=== PATIENT | female | born 1990 | race Two or more races ===

== ENCOUNTER → 2024-11-25 | Outpatient (CLI) | payer MEDICAID, SELFPAY ==
--- NOTE | 2024-11-25 09:00 | XR_ITS ---
Examination: Upper GI series with KUB Esophagram standard Fluoroscopy Bony spot fluoroscopic films of the esophagus AP abdomen single view Date and time: November 25, 2024 0945 hours INDICATIONS: Epigastric pain and heartburn bloating one year TECHNIQUE AND FINDINGS: [employer] Inspector AP supine abdomen nonobstructive bowel gas pattern Patient swallowed thin barium with 20 spot fluoroscopic films obtained of the esophagus stomach and duodenum Fluoroscopy 0.23 minutes Primary peristaltic esophageal waves noted Mild intermittent gastroesophageal reflux No esophageal constricting lesion No gastric mass deformity or ulceration Duodenal bulb expands symmetrically Duodenal sweep and visualized small bowel unremarkable excepting benign small bowel diverticula IMPRESSION: Mild intermittent gastroesophageal reflux No gastric mass deformity or ulceration Benign small bowel diverticula
== END | disposition home or self-care (01) ==
LOC: CDIM 08:52
PROVIDERS: Referring Provider Nurse Practitioner Family; Visit Provider Nurse Practitioner Family
DX: K21.9 Gastro-esophageal reflux disease without esophagitis (principal); K57.10 Diverticulosis of small intestine without perforation or abscess without bleeding
CPT/HCPCS: 74240; A4649